=== PATIENT | male | born 1980 | race Two or more races ===

== ENCOUNTER 2021-05-31 16:41 | Emergency (ER) | payer OTHER ==
[~2021-05-31] VITALS: Ht 175.3 cm; Wt 89.8 kg
--- NOTE | 2021-05-31 19:07 | NUR ---
Patient was escorted by our studio operations engineer in charge to ER bed 4A, still for MD evaluation, SBAR to RN Cat.
--- NOTE | 2021-05-31 19:08 | NUR ---
RECEIVED REPORT FROM SALVADOR MOTT. PT NOTED TO BE IN BED, RESTING COMFRTABLY. DENIES ANY N/V/D. NO SOB OR LABORED BREATHING, AFEBRILE. DENIES SI. NO AUDITORY OR VISUAL HALLUCINATIONS.
[2021-05-31] MEDS ORDERED: CHLO25CA22 PO (20:58)
[2021-05-31 21:07] VITALS: BP 155/90
--- NOTE | 2021-05-31 21:07 | NUR ---
Patient discharged to home in stable condition. Written and verbal after care instructions given. Patient verbalizes understanding of instructions. Stressed follow up or return to ER for worsening s/s. Patient out of ER with steady gait, no acute signs of distress, VSS, all belongings taken.
== END 2021-05-31 21:08 | disposition home or self-care (01) ==
LOC: ER 17:00
DX: F32.A Depression, unspecified (principal); E11.9 Type 2 diabetes mellitus without complications; E66.9 Obesity, unspecified; Z68.29 Body mass index [BMI] 29.0-29.9, adult; R03.0 Elevated blood-pressure reading, without diagnosis of hypertension
CPT/HCPCS: A4663